=== PATIENT | female | born 1945 | race Caucasian/White ===

== ENCOUNTER 2020-12-21 20:57 | Emergency (ER) | payer MEDICARE, OTHER ==
[~2020-12-21] VITALS: Ht 154.9 cm; Wt 86.2 kg
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
[2020-12-21 21:53] LABS: BASOPHILS % (AUTO) 0.5 % (0.0-2.0); EOSINOPHILS % (AUTO) 1.5 % (0.0-6.0); HEMATOCRIT 34 % (33-45); HEMOGLOBIN 10.9 g/dL (11.5-14.8); LYMPHOCYTES # (AUTO) 1.5 K/uL (0.8-4.8); LYMPHOCYTES % (AUTO) 19.4 % (20.0-44.0); MEAN CORPUSCULAR HGB CONC 32 g/dl (31.0-36.0); MEAN CORPUSCULAR VOLUME 91 fL (82-100); MONOCYTES # (AUTO) 0.5 K/uL (0.1-1.30); MONOCYTES % (AUTO) 6.7 % (2.0-12.0); NEUTROPHILS # (AUTO) 5.5 K/uL (1.8-8.9); NEUTROPHILS % (AUTO) 71.9 % (43.0-81.0); PLATELET COUNT (AUTO) 242 K/uL (150-450); RED BLOOD CELL COUNT(AUTO) 3.74 MIL/uL (4.0-5.2); WHITE BLOOD COUNT (AUTO) 7.6 K/uL (4.3-11.0)
[2020-12-21 22:03] LABS: CALCIUM, SERUM 8.2 mg/dL (8.5-10.1); CARBON DIOXIDE 22 mmol/L (21-32); CHLORIDE 106 mmol/L (98-107); CREATININE 1.8 mg/dL (0.6-1.3); GLUCOSE 300 mg/dL (74-106); SODIUM SERUM 139 mmol/L (136-145); UREA NITROGEN, BLOOD 45 mg/dL (7-18)
--- NOTE | 2020-12-21 23:32 | NUR ---
Patient discharged to home in stable condition. Written and verbal after care instructions given. Patient verbalizes understanding of instruction. IV removed. Catheter intact and site benign. Pressure and 4x4 applied to site. No bleeding noted.
[2020-12-22 00:10] VITALS: BP 149/70
== END 2020-12-22 00:10 | disposition home or self-care (01) ==
LOC: ER 20:59
DX: S00.01XA Abrasion of scalp, initial encounter (principal); S09.8XXA Other specified injuries of head, initial encounter; E11.65 Type 2 diabetes mellitus with hyperglycemia; R51.9 Headache, unspecified; I10 Essential (primary) hypertension; E03.9 Hypothyroidism, unspecified; Z94.0 Kidney transplant status; W01.0XXA Fall on same level from slipping, tripping and stumbling without subsequent striking against object, initial encounter; Y93.89 Activity, other specified; Y92.89 Other specified places as the place of occurrence of the external cause; Y99.8 Other external cause status
CPT/HCPCS: 36415; 70450-TC; 72125-TC; 72170-TC; 80048-TC; 85025-TC; 85730-TC

== ENCOUNTER 2023-08-19 09:57 | Inpatient (IN) | payer MEDICARE, OTHER ==
[2023-08-19] VITALS (25 sets, daily range): BP systolic 75–161; BP diastolic 18–106; TEMP 90.1–90.8; O2SAT 91–100
[~2023-08-19] VITALS: Ht 157.5 cm; Wt 68.0 kg
[~2023-08-19 09:57] MED LIST: AMOX-427 PO
[2023-08-19] MEDS ORDERED: CHOL500062 PO (12:01)
[2023-08-19] MEDS ORDERED: LEVO88TA71 PO (12:01)
[2023-08-19] MEDS ORDERED: INSU100I43 SQ (12:01)
[2023-08-19] MEDS ORDERED: INSU100I26 SQ (12:01)
[2023-08-19] MEDS ORDERED: ONDA4TAB5 PO (12:01)
[2023-08-19] MEDS ORDERED: MIRT-119 PO (12:01)
[2023-08-19] MEDS ORDERED: PRED1TAB PO (12:01)
[2023-08-19] MEDS ORDERED: TACR1CAP2 PO ×2 (12:01)
[2023-08-19] MEDS ORDERED: ATOR40TA PO (12:01)
[2023-08-19] MEDS ORDERED: FOLI0.8T3 PO (12:01)
[2023-08-19] MEDS ORDERED: ACET325T53 PO (12:01)
[2023-08-19 12:05] LABS: CARBON DIOXIDE 15 mmol/L (21-32); CHLORIDE 98 mmol/L (98-107); CREATININE 4.6 mg/dL (0.6-1.3); GLUCOSE 321 mg/dL (74-106); POTASSIUM 5.5 mmol/L (3.5-5.1); SODIUM SERUM 132 mmol/L (136-145)
[2023-08-19 12:11] LABS: ALANINE AMINOTRANSFERASE 7 U/L (12-78); ALKALINE PHOSPHATASE 111 U/L (46-116); ASPARTATE AMINOTRANSFERASE 21 U/L (15-37); BILIRUBIN,DIRECT 0.2 mg/dL (0.0-0.2); BILIRUBIN,TOTAL 0.4 mg/dL (0.2-1.0); TOTAL PROTEIN, SERUM 4.8 g/dL (6.4-8.2)
[2023-08-19 12:14] LABS: UREA NITROGEN, BLOOD 83 mg/dL (7-18)
[2023-08-19 12:16] LABS: ALBUMIN 1.3 g/dL (3.4-5.0)
[2023-08-19 15:30] LABS: AMPHETAMINE, URINE NEGATIVE (NEGATIVE); BARBITURATE, URINE NEGATIVE (NEGATIVE); BENZODIAZEPINE, URINE NEGATIVE (NEGATIVE); CANNABINOID, URINE NEGATIVE (NEGATIVE); COCCAINE, URINE NEGATIVE (NEGATIVE); PHENCYCLIDINE SCREEN,URINE NEGATIVE (NEGATIVE)
[2023-08-19] MEDS ORDERED: ONDANSETRON HCL/PF 4 MG/2 ML VIAL IVP PRN (15:30)
[2023-08-19] MEDS ORDERED: DEXTROSE 50%-WATER 50 ML DISP.SYRIN IV PRN (15:30)
[2023-08-19] MEDS: SODIUM POLYSTYRENE SULFONATE 15 G/60 ML BOTTLE PO ONE (15:30)
[2023-08-19] MEDS ORDERED: Z GUARD REMEDY 4 OZ OINT TP PRN (15:30)
[2023-08-19] MEDS ORDERED: ACETAMINOPHEN 325 MG TABLET PO PRN (15:30)
[2023-08-19 15:31] LABS: OPIATE, URINE POSITIVE (NEGATIVE)
[2023-08-19] MEDS ORDERED: IOHEXOL-350 100 ML VIAL IV ONE (16:10)
[2023-08-19] MEDS ORDERED: CT SWABBABLE VALVE TRANS SET 1 EA INFUS.SET MC ONE (16:10)
[2023-08-19] MEDS ORDERED: IV NS 0.9% 250 ML IV ONE (16:10)
[2023-08-19 17:16] LABS: LACTIC ACID 7.9 mmol/L (0.4-2.0)
[2023-08-19] MEDS: IV NS 0.9% 250 ML IV ONE (17:41)
[2023-08-19 17:59] LABS: SITE, VBG Other; VBG BASE EXCESS -13.6 mmol/L (-3-3); VBG COHb 0.4 %; VBG MetHb 0.6 %; VBG O2Hb 50.4 %; VBG OXYGEN SATURATION 50.9 %; VBG PCO2 28.3 mmHg (40-52); VBG PH 7.257 (7.31-7.41); VBG PO2 33.7 mmHg (30-50); VENT MODE, VBG NASAL CANNULA
[2023-08-19] MEDS: TACROLIMUS ANHYDROUS 0.5 MG CAPSULE PO SCH (18:00)
[2023-08-19] MEDS: LEVETIRACETAM (500MG) 500 MG in IV NS 0.9% 100 ML IV SCH (18:15)
[2023-08-19] MEDS: BLOOD SUGAR DIAGNOSTIC 1 EACH STRIP IN SCH (18:27)
[2023-08-19 18:28] LABS: INR 2.19 (0.91-1.10); PROTHROMBIN TIME 22.1 SECS (9.2-11.1)
[2023-08-19 19:15] LABS: BASOPHILS # (AUTO) 0.1 K/uL (0.0-0.2); BASOPHILS % (AUTO) 0.5 % (0.0-2.0); EOSINOPHILS % (AUTO) 0.1 % (0.0-6.0); LYMPHOCYTES # (AUTO) 1.7 K/uL (0.8-4.8); LYMPHOCYTES % (AUTO) 13.3 % (20.0-44.0); MEAN CORPUSCULAR HEMOGLOBIN 32 PG (26.0-33.0); MEAN CORPUSCULAR HGB CONC 28 g/dl (31.0-36.0); MEAN CORPUSCULAR VOLUME 114 fL (82-100); MONOCYTES # (AUTO) 0.5 K/uL (0.1-1.30); MONOCYTES % (AUTO) 3.6 % (2.0-12.0); NEUTROPHILS # (AUTO) 10.7 K/uL (1.8-8.9); NEUTROPHILS % (AUTO) 82.5 % (43.0-81.0); PLATELET COUNT (AUTO) 238 K/uL (150-450); RED CELL DISTRIBUTION WIDTH 21.9 % (11.5-15.0); WHITE BLOOD COUNT (AUTO) 12.9 K/uL (4.3-11.0)
[2023-08-19] MEDS: CEFEPIME 1 GM in IV D5W 50 ML IV SCH (19:24)
[2023-08-19] MEDS: ALBUMIN 25% 12.5 GM/50 ML BOTTLE IV ONE (19:42)
[2023-08-19 19:53] LABS: RED BLOOD CELL COUNT(AUTO) 0.88 MIL/uL (4.0-5.2)
[2023-08-19 19:55] LABS: HEMATOCRIT 10 % (33-45); HEMOGLOBIN 2.8 g/dL (11.5-14.8)
[2023-08-19] MEDS ORDERED: PANTOPRAZOLE 80 MG in IV NS 0.9% 100 ML IV ONE (20:00)
[2023-08-19] MEDS: PANTOPRAZOLE 40 MG VIAL IV ONE (20:24)
[2023-08-19] MEDS: VANCOMYCIN 1 GM in IV D5W 250ml IV ONE (20:25)
[2023-08-19 21:00] LABS: ABG BASE EXCESS -11.7 mmol/L; ABG OXYGEN SATURATION 99.6 % (92.0-98.5); ABG PCO2 26.3 mmHg (35.0-45.0); ABG PH 7.321 (7.350-7.450); ABG PO2 583.7 mmHg (75.0-100.0); MetHb 0.4 % (0.0-1.5); O2Hb 98.2 % (94.0-97.0); SITE, ABG Right Brachial; VENT MODE, BG AC 18 400 100 +5
[2023-08-19] MEDS ORDERED: PANTOPRAZOLE 40 MG VIAL IV SCH (21:00)
[2023-08-19] MEDS ORDERED: Sodium Bicarbonate 150 MEQ in IV D5W 1,000 ML IV PRN (21:30)
[2023-08-19] MEDS: SODIUM BICARBONATE SYR 50 MEQ/50 ML DISP.SYRIN IV ONE ×2 (21:44→22:49)
[2023-08-19] MEDS: ATORVASTATIN 40 MG TABLET PO SCH (21:44)
[2023-08-19 22:30] LABS: IRON, SERUM 75 ug/dl (50-175); TOTAL IRON BINDING CAPACITY 71 ug/dl (250-450)
[2023-08-19 22:33] LABS: FERRITIN 2742 ng/mL (8-388)
[2023-08-19] MEDS: INSULIN REGULAR, HUMAN 100 UNIT/ML 3 ML VIAL SQ PRN (23:34)
[2023-08-20] VITALS (73 sets, daily range): BP systolic 79–144; BP diastolic 23–111; TEMP 84.9–99.5; O2SAT 96–100
[2023-08-20] MEDS: PROPOFOL 100 ML IV PRN (00:17)
[2023-08-20] MEDS ORDERED: SODIUM BICARBONATE 5 ML VIAL ONE (00:54)
[2023-08-20 00:55] LABS: BASOPHILS # (AUTO) 0.1 K/uL (0.0-0.2); BASOPHILS % (AUTO) 0.7 % (0.0-2.0); HEMATOCRIT 30 % (33-45); HEMOGLOBIN 9.8 g/dL (11.5-14.8); LYMPHOCYTES # (AUTO) 0.6 K/uL (0.8-4.8); LYMPHOCYTES % (AUTO) 3.5 % (20.0-44.0); MEAN CORPUSCULAR HEMOGLOBIN 30 PG (26.0-33.0); MEAN CORPUSCULAR HGB CONC 33 g/dl (31.0-36.0); MEAN CORPUSCULAR VOLUME 92 fL (82-100); MONOCYTES # (AUTO) 0.5 K/uL (0.1-1.30); MONOCYTES % (AUTO) 2.7 % (2.0-12.0); NEUTROPHILS # (AUTO) 17.1 K/uL (1.8-8.9); NEUTROPHILS % (AUTO) 93.1 % (43.0-81.0); PLATELET COUNT (AUTO) 231 K/uL (150-450); RED BLOOD CELL COUNT(AUTO) 3.28 MIL/uL (4.0-5.2); RED CELL DISTRIBUTION WIDTH 15.2 % (11.5-15.0); WHITE BLOOD COUNT (AUTO) 18.4 K/uL (4.3-11.0)
[2023-08-20] MEDS: SODIUM BICARBONATE SYR 50 MEQ/50 ML DISP.SYRIN ONE (01:05)
[2023-08-20 01:23] LABS: ALANINE AMINOTRANSFERASE 11 U/L (12-78); ALBUMIN 1.6 g/dL (3.4-5.0); ALKALINE PHOSPHATASE 106 U/L (46-116); ASPARTATE AMINOTRANSFERASE 27 U/L (15-37); BILIRUBIN,TOTAL 0.7 mg/dL (0.2-1.0); CARBON DIOXIDE 19 mmol/L (21-32); CHLORIDE 100 mmol/L (98-107); CREATININE 4.7 mg/dL (0.6-1.3); MAGNESIUM 1.9 mg/dL (1.8-2.4); PHOSPHORUS 6.3 mg/dL (2.5-4.9); POTASSIUM 5.1 mmol/L (3.5-5.1); SODIUM SERUM 135 mmol/L (136-145); TOTAL PROTEIN, SERUM 4.9 g/dL (6.4-8.2)
[2023-08-20 01:35] LABS: GLUCOSE 415 mg/dL (74-106); UREA NITROGEN, BLOOD 88 mg/dL (7-18)
[2023-08-20 02:02] LABS: ANISOCYTOSIS 1+; BAND % (MANUAL) 3 % (0.0-5.0); BASOPHILS % (MANUAL) 0 % (0.0-2.0); EOSINOPHILS % (MANUAL) 0 % (0-4); HYPOCHROMASIA 1+; LYMPHOCYTES % (MANUAL) 15 % (16-48); MONOCYTES % (MANUAL) 6 % (0-11.0); NEUTROPHILS % (MANUAL) 76 (42-76); OVALOCYTES 1+; PLATELET ESTIMATE ADEQUATE
[2023-08-20] MEDS: Sodium Bicarbonate 150 MEQ in IV D5W 1,000 ML IV SCH (02:15)
[2023-08-20 04:43] LABS: BASOPHILS % (AUTO) 0.2 % (0.0-2.0); EOSINOPHILS % (AUTO) 0.1 % (0.0-6.0); HEMATOCRIT 27 % (33-45); HEMOGLOBIN 9.2 g/dL (11.5-14.8); LYMPHOCYTES % (AUTO) 4.3 % (20.0-44.0); MEAN CORPUSCULAR HEMOGLOBIN 31 PG (26.0-33.0); MEAN CORPUSCULAR HGB CONC 34 g/dl (31.0-36.0); MEAN CORPUSCULAR VOLUME 91 fL (82-100); MONOCYTES % (AUTO) 4.5 % (2.0-12.0); NEUTROPHILS % (AUTO) 90.9 % (43.0-81.0); PLATELET COUNT (AUTO) 225 K/uL (150-450); RED BLOOD CELL COUNT(AUTO) 3.02 MIL/uL (4.0-5.2); RED CELL DISTRIBUTION WIDTH 14.9 % (11.5-15.0); WHITE BLOOD COUNT (AUTO) 18.2 K/uL (4.3-11.0)
[2023-08-20 04:44] LABS: LYMPHOCYTES # (AUTO) 0.8 K/uL (0.8-4.8); MONOCYTES # (AUTO) 0.8 K/uL (0.1-1.30); NEUTROPHILS # (AUTO) 16.6 K/uL (1.8-8.9)
[2023-08-20 05:38] LABS: ALANINE AMINOTRANSFERASE 7 U/L (12-78); ALKALINE PHOSPHATASE 95 U/L (46-116); ASPARTATE AMINOTRANSFERASE 28 U/L (15-37); BILIRUBIN,TOTAL 0.6 mg/dL (0.2-1.0); CALCIUM, SERUM 7.4 mg/dL (8.5-10.1); CARBON DIOXIDE 20 mmol/L (21-32); CHLORIDE 95 mmol/L (98-107); CREATININE 4.4 mg/dL (0.6-1.3); GLUCOSE 320 mg/dL (74-106); MAGNESIUM 1.7 mg/dL (1.8-2.4); PHOSPHORUS 5.5 mg/dL (2.5-4.9); POTASSIUM 4.8 mmol/L (3.5-5.1); SODIUM SERUM 130 mmol/L (136-145); TOTAL PROTEIN, SERUM 4.4 g/dL (6.4-8.2)
[2023-08-20 05:39] LABS: ALBUMIN 1.4 g/dL (3.4-5.0); UREA NITROGEN, BLOOD 86 mg/dL (7-18)
[2023-08-20 05:49] LABS: CHOLESTEROL 63 mg/dL (<200); CREATINE KINASE, TOTAL 192 U/L (26-192); HDL CHOLESTEROL 18 mg/dL (40-60); LDL 16 mg/dL (0-99); THYROID STIMULATING HORMONE 11.744 uIU/mL (0.358-3.74); TRIGLYCERIDES 1342 mg/dL (30-150)
[2023-08-20] MEDS: BLOOD SUGAR DIAGNOSTIC 1 EACH STRIP IN SCH (05:55)
[2023-08-20] MEDS: INSULIN REGULAR, HUMAN 100 UNIT/ML 3 ML VIAL SQ PRN (06:02)
[2023-08-20] MEDS ORDERED: PANTOPRAZOLE 40 MG TABLET.DR PO SCH (07:30)
[2023-08-20] MEDS: LEVOTHYROXINE SODIUM 88 MCG TABLET PO SCH (07:30)
[2023-08-20] MEDS: TACROLIMUS ANHYDROUS 0.5 MG CAPSULE PO SCH (09:00)
[2023-08-20] MEDS: CHOLECALCIFEROL 1,000 UNIT TABLET (VIT D3) PO SCH (09:00)
[2023-08-20] MEDS: predniSONE 1 MG TABLET PO SCH (09:00)
[2023-08-20] MEDS ORDERED: SODIUM BICARBONATE SYR 50 MEQ/50 ML DISP.SYRIN IV ONE (09:02)
[2023-08-20] MEDS: PANTOPRAZOLE 40 MG VIAL IV SCH (09:47)
[2023-08-20] MEDS: FOLIC ACID 1 MG TABLET PO SCH (09:58)
[2023-08-20 10:44] LABS: ABG BASE EXCESS 6.4 mmol/L; ABG OXYGEN SATURATION 96.4 % (92.0-98.5); ABG PH 7.512 (7.350-7.450); ABG PO2 82.8 mmHg (75.0-100.0); ABG TOTAL HEMOGLOBIN 10.7 G/dL (12.0-16.0); AaDO2 158.7 mmHg; COHb 0.6 % (0.5-1.5); MetHb 0.2 % (0.0-1.5); O2Hb 95.6 % (94.0-97.0); PEEP,BG 0 cm H2O; SITE, ABG Right Radial; VENT MODE, BG AC @ 40%; VT, ABG 400 mL
[2023-08-20] MEDS: Magnesium 1GM/D5W 100ML PREMIX 100 ML IV SCH (11:25)
[2023-08-20] MEDS: MIDAZOLAM HCL 100 MG in IV NS 0.9% 80 ML IV PRN (14:08)
[2023-08-20] MEDS ORDERED: IV NS 0.9% 250 ML IV ONE (14:33)
[2023-08-20] MEDS ORDERED: IOHEXOL-350 100 ML VIAL IV ONE (14:33)
[2023-08-20] MEDS ORDERED: CT SWABBABLE VALVE TRANS SET 1 EA INFUS.SET MC ONE (14:33)
[2023-08-20] MEDS: VANCOMYCIN POST DIALYSIS 500MG IV PRN (15:18)
[2023-08-20] MEDS: IV NS 0.9% 250 ML IV PRN (15:20)
[2023-08-20] MEDS: NOREPINEPHRINE 8 MG in IV D5W 242 ML IV PRN (18:00)
[2023-08-20] MEDS ORDERED: ANESTHESIA TRAY IN PYXIS 1 EA TRAY MC ONE (18:16)
[2023-08-20] MEDS ORDERED: Sodium Bicarbonate 150 MEQ in IV D5W 1,000 ML IV SCH (23:00)
[2023-08-21] VITALS (81 sets, daily range): BP systolic 79–154; BP diastolic 27–103; TEMP 98.2–99.5; O2SAT 100
[2023-08-21 04:50] LABS: CALCIUM, SERUM 7.9 mg/dL (8.5-10.1); CARBON DIOXIDE 29 mmol/L (21-32); CHLORIDE 104 mmol/L (98-107); CREATININE 3.2 mg/dL (0.6-1.3); GLUCOSE 74 mg/dL (74-106); POTASSIUM 3.2 mmol/L (3.5-5.1); SODIUM SERUM 141 mmol/L (136-145); UREA NITROGEN, BLOOD 52 mg/dL (7-18)
[2023-08-21 07:18] LABS: BASOPHILS # (AUTO) 0.1 K/uL (0.0-0.2); BASOPHILS % (AUTO) 0.3 % (0.0-2.0); EOSINOPHILS # (AUTO) 0.2 K/uL (0.0-0.7); EOSINOPHILS % (AUTO) 0.7 % (0.0-6.0); HEMATOCRIT 27 % (33-45); LYMPHOCYTES # (AUTO) 1.5 K/uL (0.8-4.8); LYMPHOCYTES % (AUTO) 4.8 % (20.0-44.0); MEAN CORPUSCULAR HEMOGLOBIN 30 PG (26.0-33.0); MEAN CORPUSCULAR HGB CONC 33 g/dl (31.0-36.0); MEAN CORPUSCULAR VOLUME 90 fL (82-100); MONOCYTES # (AUTO) 0.9 K/uL (0.1-1.30); NEUTROPHILS # (AUTO) 28.3 K/uL (1.8-8.9); NEUTROPHILS % (AUTO) 91.2 % (43.0-81.0); PLATELET COUNT (AUTO) 213 K/uL (150-450); RED BLOOD CELL COUNT(AUTO) 3.02 MIL/uL (4.0-5.2); RED CELL DISTRIBUTION WIDTH 15.3 % (11.5-15.0)
[2023-08-21] MEDS: POTASSIUM CL. PREMIX PERIPHER. 50 ML IV SCH (08:20)
[2023-08-21 09:26] LABS: ABG BASE EXCESS 1.3 mmol/L; ABG OXYGEN SATURATION 95.1 % (92.0-98.5); ABG PCO2 36.9 mmHg (35.0-45.0); ABG PH 7.451 (7.350-7.450); ABG PO2 73.8 mmHg (75.0-100.0); ABG TOTAL HEMOGLOBIN 12.1 G/dL (12.0-16.0); COHb 0.9 % (0.5-1.5); MetHb 0.2 % (0.0-1.5); O2Hb 94.1 % (94.0-97.0); SITE, ABG Right Radial
[2023-08-21 10:07] LABS: *SPE A/G RATIO 0.9 (0.7-1.7); *SPE ALBUMIN 2.1 g/dL (2.9-4.4); *SPE ALPHA-1-GLOBULIN 0.4 g/dL (0.0-0.4); *SPE ALPHA-2-GLOBULIN 0.5 g/dL (0.4-1.0); *SPE BETA GLOBULIN 0.6 g/dL (0.7-1.3); *SPE GLOBULIN, TOTAL 2.3 g/dL (2.2-3.9); *SPE M-SPIKE Not Observed g/dL (Not Observed); *SPE PROTEIN TOTAL 4.4 g/dL (6.0-8.5); *SPEGAMMA GLOBULIN 0.7 g/dL (0.4-1.8)
[2023-08-21 11:09] LABS: HEPATITIS B SURFACE AB Reactive (.)
[2023-08-21 11:36] LABS: BAND % (MANUAL) 5 % (0.0-5.0); LYMPHOCYTES % (MANUAL) 9 % (16-48); NEUTROPHILS % (MANUAL) 80 (42-76)
[2023-08-21 11:37] LABS: ANISOCYTOSIS 1+; BASOPHILS % (MANUAL) 0 % (0.0-2.0); EOSINOPHILS % (MANUAL) 0 % (0-4); MONOCYTES % (MANUAL) 6 % (0-11.0); OVALOCYTES 1+; PLATELET ESTIMATE ADEQUATE
[2023-08-21] MEDS ORDERED: PHARMACY TO CHANGE PO MEDS TO GT/NG XX PRN (16:30)
[2023-08-21] MEDS: TACROLIMUS ANHYDROUS 0.5 MG CAPSULE GT SCH (18:02)
[2023-08-21] MEDS: ATORVASTATIN 40 MG TABLET GT SCH (21:07)
[2023-08-21] MEDS: MEROPENEM 500 MG in IV NS 0.9% 50 ML IV SCH (21:07)
[2023-08-22] VITALS (99 sets, daily range): BP systolic 66–148; BP diastolic 18–119; TEMP 98.8–100.2; O2SAT 100
[2023-08-22 06:44] LABS: BASOPHILS # (AUTO) 0.1 K/uL (0.0-0.2); EOSINOPHILS # (AUTO) 0.1 K/uL (0.0-0.7)
[2023-08-22 06:52] LABS: BASOPHILS % (AUTO) 0.3 % (0.0-2.0); EOSINOPHILS % (AUTO) 0.2 % (0.0-6.0); HEMATOCRIT 32 % (33-45); HEMOGLOBIN 10.6 g/dL (11.5-14.8); LYMPHOCYTES # (AUTO) 1.5 K/uL (0.8-4.8); LYMPHOCYTES % (AUTO) 4.5 % (20.0-44.0); MEAN CORPUSCULAR HEMOGLOBIN 30 PG (26.0-33.0); MEAN CORPUSCULAR HGB CONC 34 g/dl (31.0-36.0); MEAN CORPUSCULAR VOLUME 90 fL (82-100); MONOCYTES # (AUTO) 1.2 K/uL (0.1-1.30); MONOCYTES % (AUTO) 3.6 % (2.0-12.0); NEUTROPHILS # (AUTO) 29.9 K/uL (1.8-8.9); NEUTROPHILS % (AUTO) 91.4 % (43.0-81.0); PLATELET COUNT (AUTO) 222 K/uL (150-450); RED BLOOD CELL COUNT(AUTO) 3.51 MIL/uL (4.0-5.2); RED CELL DISTRIBUTION WIDTH 15.6 % (11.5-15.0)
[2023-08-22 06:53] LABS: CALCIUM, SERUM 7.5 mg/dL (8.5-10.1); CARBON DIOXIDE 22 mmol/L (21-32); CHLORIDE 93 mmol/L (98-107); CREATININE 2.6 mg/dL (0.6-1.3); GLUCOSE 174 mg/dL (74-106); POTASSIUM 3.4 mmol/L (3.5-5.1); SODIUM SERUM 129 mmol/L (136-145); UREA NITROGEN, BLOOD 34 mg/dL (7-18)
[2023-08-22 07:03] LABS: WHITE BLOOD COUNT (AUTO) 32.8 K/uL (4.3-11.0)
[2023-08-22] MEDS: CHOLECALCIFEROL 1,000 UNIT TABLET (VIT D3) GT SCH (08:05)
[2023-08-22] MEDS: predniSONE 1 MG TABLET GT SCH (08:05)
[2023-08-22] MEDS: TACROLIMUS ANHYDROUS 0.5 MG CAPSULE GT SCH (08:05)
[2023-08-22] MEDS: FOLIC ACID 1 MG TABLET GT SCH (08:05)
[2023-08-22] MEDS: LEVOTHYROXINE SODIUM 88 MCG TABLET GT SCH (08:07)
[2023-08-22 12:55] LABS: ANISOCYTOSIS 1+; BAND % (MANUAL) 3 % (0.0-5.0); BASOPHILS % (MANUAL) 0 % (0.0-2.0); EOSINOPHILS % (MANUAL) 0 % (0-4); LYMPHOCYTES % (MANUAL) 8 % (16-48); MONOCYTES % (MANUAL) 4 % (0-11.0); NEUTROPHILS % (MANUAL) 85 (42-76); OVALOCYTES 1+; PLATELET ESTIMATE ADEQUATE
[2023-08-22] MEDS: ACETAMINOPHEN 650 MG/20.3 ML UDC GT PRN (13:02)
[2023-08-23] VITALS (56 sets, daily range): BP systolic 46–137; BP diastolic 24–111; TEMP 97–99; O2SAT 95–100
[2023-08-23 03:23] LABS: BASOPHILS # (AUTO) 0.1 K/uL (0.0-0.2); BASOPHILS % (AUTO) 0.2 % (0.0-2.0); EOSINOPHILS # (AUTO) 0.2 K/uL (0.0-0.7); EOSINOPHILS % (AUTO) 0.9 % (0.0-6.0); HEMATOCRIT 33 % (33-45); LYMPHOCYTES # (AUTO) 1.7 K/uL (0.8-4.8); LYMPHOCYTES % (AUTO) 5.9 % (20.0-44.0); MEAN CORPUSCULAR HEMOGLOBIN 30 PG (26.0-33.0); MEAN CORPUSCULAR HGB CONC 34 g/dl (31.0-36.0); MEAN CORPUSCULAR VOLUME 90 fL (82-100); MONOCYTES # (AUTO) 1.1 K/uL (0.1-1.30); MONOCYTES % (AUTO) 3.9 % (2.0-12.0); NEUTROPHILS # (AUTO) 25.1 K/uL (1.8-8.9); NEUTROPHILS % (AUTO) 89.1 % (43.0-81.0); PLATELET COUNT (AUTO) 207 K/uL (150-450); RED BLOOD CELL COUNT(AUTO) 3.66 MIL/uL (4.0-5.2); RED CELL DISTRIBUTION WIDTH 16.3 % (11.5-15.0); WHITE BLOOD COUNT (AUTO) 28.2 K/uL (4.3-11.0)
[2023-08-23 03:36] LABS: CALCIUM, SERUM 7.8 mg/dL (8.5-10.1); CARBON DIOXIDE 25 mmol/L (21-32); CHLORIDE 92 mmol/L (98-107); CREATININE 3.1 mg/dL (0.6-1.3); GLUCOSE 122 mg/dL (74-106); POTASSIUM 3.2 mmol/L (3.5-5.1); SODIUM SERUM 127 mmol/L (136-145); UREA NITROGEN, BLOOD 38 mg/dL (7-18)
[2023-08-23] MEDS: GLUCERNA 1.2 1,000 ML BOTTLE NG PRN (11:08)
[2023-08-23] MEDS: ALBUMIN 25% 25 GM in PREMIX 1 EA IV PRN (13:44)
[2023-08-23] MEDS ORDERED: FLUCONAZOLE IN NS 100 MG in PREMIX 1 EA IV SCH (19:00)
[2023-08-23] MEDS: MICAFUNGIN SODIUM 100 MG in IV NS 0.9% 100 ML IV SCH (21:40)
[2023-08-23] MEDS: NOREPINEPHRINE 32 MG in IV NS 0.9% 250 ML IV PRN (22:03)
[2023-08-24] VITALS (100 sets, daily range): BP systolic 85–163; BP diastolic 22–117; TEMP 97.4–99.3; O2SAT 90–100
[2023-08-24 04:48] LABS: BASOPHILS # (AUTO) 0.1 K/uL (0.0-0.2); BASOPHILS % (AUTO) 0.5 % (0.0-2.0); EOSINOPHILS # (AUTO) 0.1 K/uL (0.0-0.7); EOSINOPHILS % (AUTO) 0.6 % (0.0-6.0); HEMATOCRIT 32 % (33-45); HEMOGLOBIN 10.4 g/dL (11.5-14.8); LYMPHOCYTES # (AUTO) 1.4 K/uL (0.8-4.8); LYMPHOCYTES % (AUTO) 7.2 % (20.0-44.0); MEAN CORPUSCULAR HEMOGLOBIN 30 PG (26.0-33.0); MEAN CORPUSCULAR HGB CONC 33 g/dl (31.0-36.0); MEAN CORPUSCULAR VOLUME 91 fL (82-100); MONOCYTES # (AUTO) 1.4 K/uL (0.1-1.30); MONOCYTES % (AUTO) 7.3 % (2.0-12.0); NEUTROPHILS # (AUTO) 15.9 K/uL (1.8-8.9); NEUTROPHILS % (AUTO) 84.4 % (43.0-81.0); PLATELET COUNT (AUTO) 168 K/uL (150-450); RED BLOOD CELL COUNT(AUTO) 3.46 MIL/uL (4.0-5.2); RED CELL DISTRIBUTION WIDTH 16.8 % (11.5-15.0); WHITE BLOOD COUNT (AUTO) 18.9 K/uL (4.3-11.0)
[2023-08-24 05:07] LABS: CALCIUM, SERUM 8.3 mg/dL (8.5-10.1); CARBON DIOXIDE 25 mmol/L (21-32); CHLORIDE 96 mmol/L (98-107); CREATININE 2.7 mg/dL (0.6-1.3); GLUCOSE 256 mg/dL (74-106); POTASSIUM 3.5 mmol/L (3.5-5.1); SODIUM SERUM 132 mmol/L (136-145); UREA NITROGEN, BLOOD 24 mg/dL (7-18)
[2023-08-24] MEDS: DEXTROSE 50%-WATER 50 ML DISP.SYRIN IV PRN (18:15)
[2023-08-24] MEDS: PANTOPRAZOLE 40 MG/PACK PACK GT SCH (21:23)
[2023-08-25] VITALS (94 sets, daily range): BP systolic 59–150; BP diastolic 17–113; TEMP 97.5–99.2; O2SAT 87–100
[2023-08-25 04:58] LABS: BASOPHILS # (AUTO) 0.1 K/uL (0.0-0.2); BASOPHILS % (AUTO) 0.5 % (0.0-2.0); EOSINOPHILS # (AUTO) 0.2 K/uL (0.0-0.7); EOSINOPHILS % (AUTO) 1.5 % (0.0-6.0); HEMATOCRIT 27 % (33-45); HEMOGLOBIN 9.3 g/dL (11.5-14.8); LYMPHOCYTES # (AUTO) 1.1 K/uL (0.8-4.8); LYMPHOCYTES % (AUTO) 11.2 % (20.0-44.0); MEAN CORPUSCULAR HEMOGLOBIN 31 PG (26.0-33.0); MEAN CORPUSCULAR HGB CONC 34 g/dl (31.0-36.0); MEAN CORPUSCULAR VOLUME 92 fL (82-100); MONOCYTES % (AUTO) 10.1 % (2.0-12.0); NEUTROPHILS # (AUTO) 7.8 K/uL (1.8-8.9); NEUTROPHILS % (AUTO) 76.7 % (43.0-81.0); PLATELET COUNT (AUTO) 127 K/uL (150-450); RED BLOOD CELL COUNT(AUTO) 2.99 MIL/uL (4.0-5.2); RED CELL DISTRIBUTION WIDTH 16.5 % (11.5-15.0); WHITE BLOOD COUNT (AUTO) 10.1 K/uL (4.3-11.0)
[2023-08-25 05:27] LABS: CALCIUM, SERUM 8.4 mg/dL (8.5-10.1); CARBON DIOXIDE 24 mmol/L (21-32); CHLORIDE 99 mmol/L (98-107); CREATININE 3.3 mg/dL (0.6-1.3); GLUCOSE 207 mg/dL (74-106); POTASSIUM 3.8 mmol/L (3.5-5.1); SODIUM SERUM 132 mmol/L (136-145); UREA NITROGEN, BLOOD 28 mg/dL (7-18)
[2023-08-25] MEDS: PRECEDEX 400 MCG/100 ML BOTTLE 100 ML IV PRN (11:06)
[2023-08-25] MEDS: NOREPINEPHRINE 8 MG in IV D5W 250ML IV PRN (11:20)
[2023-08-26] VITALS (63 sets, daily range): BP systolic 57–167; BP diastolic 23–147; TEMP 97.2–98.2; O2SAT 93–100
[2023-08-26 04:57] LABS: CALCIUM, SERUM 8.5 mg/dL (8.5-10.1); CARBON DIOXIDE 28 mmol/L (21-32); CHLORIDE 97 mmol/L (98-107); CREATININE 2.6 mg/dL (0.6-1.3); GLUCOSE 201 mg/dL (74-106); POTASSIUM 3.9 mmol/L (3.5-5.1); SODIUM SERUM 133 mmol/L (136-145); UREA NITROGEN, BLOOD 20 mg/dL (7-18)
[2023-08-26] MEDS: VIT B CMPLX 3/FA/VIT C/BIOTIN 1 TAB TABLET GT SCH (09:14)
[2023-08-26] MEDS: LEVETIRACETAM SOL (5 ML) 100 MG/ML UDC GT SCH (16:47)
[2023-08-27] VITALS (129 sets, daily range): BP systolic 45–131; BP diastolic 16–91; TEMP 97.6–98.6; O2SAT 74–100
[2023-08-27 04:44] LABS: BASOPHILS # (AUTO) 0.1 K/uL (0.0-0.2); BASOPHILS % (AUTO) 0.7 % (0.0-2.0); EOSINOPHILS # (AUTO) 0.2 K/uL (0.0-0.7); EOSINOPHILS % (AUTO) 2.2 % (0.0-6.0); HEMATOCRIT 29 % (33-45); HEMOGLOBIN 9.6 g/dL (11.5-14.8); LYMPHOCYTES # (AUTO) 1.2 K/uL (0.8-4.8); MEAN CORPUSCULAR HEMOGLOBIN 31 PG (26.0-33.0); MEAN CORPUSCULAR HGB CONC 33 g/dl (31.0-36.0); MEAN CORPUSCULAR VOLUME 94 fL (82-100); MONOCYTES # (AUTO) 1.1 K/uL (0.1-1.30); NEUTROPHILS # (AUTO) 8.2 K/uL (1.8-8.9); NEUTROPHILS % (AUTO) 76.1 % (43.0-81.0); PLATELET COUNT (AUTO) 203 K/uL (150-450); RED BLOOD CELL COUNT(AUTO) 3.13 MIL/uL (4.0-5.2); RED CELL DISTRIBUTION WIDTH 17.3 % (11.5-15.0); WHITE BLOOD COUNT (AUTO) 10.8 K/uL (4.3-11.0)
[2023-08-27 04:50] LABS: CALCIUM, SERUM 8.8 mg/dL (8.5-10.1); CARBON DIOXIDE 29 mmol/L (21-32); CHLORIDE 97 mmol/L (98-107); CREATININE 3.2 mg/dL (0.6-1.3); GLUCOSE 210 mg/dL (74-106); POTASSIUM 4.3 mmol/L (3.5-5.1); SODIUM SERUM 132 mmol/L (136-145); UREA NITROGEN, BLOOD 26 mg/dL (7-18)
[2023-08-28] VITALS (117 sets, daily range): BP systolic 55–187; BP diastolic 13–97; TEMP 98.1–100.4; O2SAT 92–100
[2023-08-28 04:39] LABS: CALCIUM, SERUM 8.6 mg/dL (8.5-10.1); CARBON DIOXIDE 28 mmol/L (21-32); CHLORIDE 100 mmol/L (98-107); CREATININE 2.7 mg/dL (0.6-1.3); GLUCOSE 197 mg/dL (74-106); POTASSIUM 3.8 mmol/L (3.5-5.1); SODIUM SERUM 135 mmol/L (136-145); UREA NITROGEN, BLOOD 21 mg/dL (7-18)
[2023-08-28 04:53] LABS: BASOPHILS # (AUTO) 0.1 K/uL (0.0-0.2); BASOPHILS % (AUTO) 1.1 % (0.0-2.0); EOSINOPHILS # (AUTO) 0.3 K/uL (0.0-0.7); EOSINOPHILS % (AUTO) 3.1 % (0.0-6.0); HEMATOCRIT 32 % (33-45); HEMOGLOBIN 10.5 g/dL (11.5-14.8); LYMPHOCYTES # (AUTO) 1.3 K/uL (0.8-4.8); LYMPHOCYTES % (AUTO) 12.3 % (20.0-44.0); MEAN CORPUSCULAR HEMOGLOBIN 31 PG (26.0-33.0); MEAN CORPUSCULAR HGB CONC 33 g/dl (31.0-36.0); MEAN CORPUSCULAR VOLUME 94 fL (82-100); MONOCYTES # (AUTO) 1.2 K/uL (0.1-1.30); MONOCYTES % (AUTO) 10.7 % (2.0-12.0); NEUTROPHILS # (AUTO) 7.9 K/uL (1.8-8.9); NEUTROPHILS % (AUTO) 72.8 % (43.0-81.0); PLATELET COUNT (AUTO) 249 K/uL (150-450); RED CELL DISTRIBUTION WIDTH 16.9 % (11.5-15.0); WHITE BLOOD COUNT (AUTO) 10.9 K/uL (4.3-11.0)
[2023-08-29] VITALS (57 sets, daily range): BP systolic 54–159; BP diastolic 15–130; TEMP 95.2–100.4; O2SAT 62–100
[2023-08-29 06:54] LABS: BASOPHILS # (AUTO) 0.1 K/uL (0.0-0.2); BASOPHILS % (AUTO) 1.3 % (0.0-2.0); EOSINOPHILS # (AUTO) 0.4 K/uL (0.0-0.7); EOSINOPHILS % (AUTO) 4.1 % (0.0-6.0); HEMATOCRIT 31 % (33-45); LYMPHOCYTES # (AUTO) 1.1 K/uL (0.8-4.8); LYMPHOCYTES % (AUTO) 10.6 % (20.0-44.0); MEAN CORPUSCULAR HEMOGLOBIN 30 PG (26.0-33.0); MEAN CORPUSCULAR HGB CONC 33 g/dl (31.0-36.0); MEAN CORPUSCULAR VOLUME 93 fL (82-100); MONOCYTES # (AUTO) 0.7 K/uL (0.1-1.30); MONOCYTES % (AUTO) 6.7 % (2.0-12.0); NEUTROPHILS # (AUTO) 7.7 K/uL (1.8-8.9); NEUTROPHILS % (AUTO) 77.3 % (43.0-81.0); PLATELET COUNT (AUTO) 229 K/uL (150-450); RED CELL DISTRIBUTION WIDTH 17.4 % (11.5-15.0)
[2023-08-29 07:43] LABS: CALCIUM, SERUM 8.2 mg/dL (8.5-10.1); CARBON DIOXIDE 28 mmol/L (21-32); CHLORIDE 99 mmol/L (98-107); CREATININE 3.4 mg/dL (0.6-1.3); GLUCOSE 205 mg/dL (74-106); PHOSPHORUS 4.7 mg/dL (2.5-4.9); SODIUM SERUM 135 mmol/L (136-145); UREA NITROGEN, BLOOD 27 mg/dL (7-18); VANCOMYCIN,TROUGH 21 ug/ml (10-20)
[2023-08-29] MEDS ORDERED: MORPHINE SULFATE PF DRIP 250 MG in IV D5W 240 ML IV PRN (08:30)
[2023-08-29] MEDS ORDERED: DC PROPOFOL WHEN EXTUBATED XX SCH (10:30)
[2023-08-30 07:55] LABS: PTH, INTACT 153 pg/mL
== END 2023-08-29 11:38 | DRG 64 ==
LOC: ER 10:02 → TELE 13:57 → ICU 15:35
PROVIDERS: ADMIT Nurse Practitioner Family; ATTEND Internal Medicine
PROC: 5A1955Z Respiratory Ventilation, Greater than 96 Consecutive Hours (ICD-10-PCS; principal; 2023-08-19)
PROC: 0BH18EZ Insertion of Endotracheal Airway into Trachea, Via Natural or Artificial Opening Endoscopic (ICD-10-PCS; 2023-08-19)
PROC: 30233N1 Transfusion of Nonautologous Red Blood Cells into Peripheral Vein, Percutaneous Approach (ICD-10-PCS; 2023-08-19)
PROC: 05H533Z Insertion of Infusion Device into Right Subclavian Vein, Percutaneous Approach (ICD-10-PCS; 2023-08-19)
PROC: B546ZZA Ultrasonography of Right Subclavian Vein, Guidance (ICD-10-PCS; 2023-08-19)
PROC: 5A12012 Performance of Cardiac Output, Single, Manual (ICD-10-PCS; 2023-08-19)
PROC: 0DB68ZX Excision of Stomach, Via Natural or Artificial Opening Endoscopic, Diagnostic (ICD-10-PCS; 2023-08-20)
PROC: 02HV33Z Insertion of Infusion Device into Superior Vena Cava, Percutaneous Approach (ICD-10-PCS; 2023-08-20)
PROC: B548ZZA Ultrasonography of Superior Vena Cava, Guidance (ICD-10-PCS; 2023-08-20)
PROC: 30233K1 Transfusion of Nonautologous Frozen Plasma into Peripheral Vein, Percutaneous Approach (ICD-10-PCS; 2023-08-20)
DX: I62.00 Nontraumatic subdural hemorrhage, unspecified (principal); J96.00 Acute respiratory failure, unspecified whether with hypoxia or hypercapnia; K25.4 Chronic or unspecified gastric ulcer with hemorrhage; N18.6 End stage renal disease; K29.51 Unspecified chronic gastritis with bleeding; E87.1 Hypo-osmolality and hyponatremia; G93.1 Anoxic brain damage, not elsewhere classified; T86.12 Kidney transplant failure; I13.2 Hypertensive heart and chronic kidney disease with heart failure and with stage 5 chronic kidney disease, or end stage renal disease; E11.52 Type 2 diabetes mellitus with diabetic peripheral angiopathy with gangrene; L03.115 Cellulitis of right lower limb; I96 Gangrene, not elsewhere classified; B37.81 Candidal esophagitis; R57.9 Shock, unspecified; I60.9 Nontraumatic subarachnoid hemorrhage, unspecified; Z51.5 Encounter for palliative care; I46.9 Cardiac arrest, cause unspecified; Y83.8 Other surgical procedures as the cause of abnormal reaction of the patient, or of later complication, without mention of misadventure at the time of the procedure; Y92.009 Unspecified place in unspecified non-institutional (private) residence as the place of occurrence of the external cause; Z79.60 Long term (current) use of unspecified immunomodulators and immunosuppressants; E03.9 Hypothyroidism, unspecified; E11.22 Type 2 diabetes mellitus with diabetic chronic kidney disease; E78.1 Pure hyperglyceridemia; E87.5 Hyperkalemia; R29.810 Facial weakness; M19.90 Unspecified osteoarthritis, unspecified site; Z79.4 Long term (current) use of insulin; Z86.73 Personal history of transient ischemic attack (TIA), and cerebral infarction without residual deficits; Z99.2 Dependence on renal dialysis; I65.23 Occlusion and stenosis of bilateral carotid arteries; L89.626 Pressure-induced deep tissue damage of left heel; L89.616 Pressure-induced deep tissue damage of right heel; D50.0 Iron deficiency anemia secondary to blood loss (chronic); I50.9 Heart failure, unspecified; I25.10 Atherosclerotic heart disease of native coronary artery without angina pectoris; B96.81 Helicobacter pylori [H. pylori] as the cause of diseases classified elsewhere; Y83.2 Surgical operation with anastomosis, bypass or graft as the cause of abnormal reaction of the patient, or of later complication, without mention of misadventure at the time of the procedure
CPT/HCPCS: 31720; 36410; 36415; 36569; 36600; 70450-TC; 70496-TC; 70498-TC; 71045-TC; 80048-TC; 80053-TC; 80061-TC; 80076-TC; 80202-TC; 82010-TC; 82550-TC; 82607-TC; 82728-TC; 82803-TC; 82962-TC; 83540-TC; 83605-TC; 83735-TC; 83970; 84100-TC; 84155; 84165; 84443-TC; 84484-TC; 85025-TC; 85730-TC; 86706; 86850-TC; 87040-TC; 87340; 88305-TC; 88313-TC; 88342; 90935-TC; 92950-TC; 93307-TC; 93930-TC; 93971-TC; 94002-TC; 94003-TC; 94762-TC; 94799-TC; A4216; A4223; A6403; C9113; G0378; J0171; J0692; J1815; J1953; J2185; J2248; J2250; J2274; J3370; J3475; J3480; J3490; J7030; J7050; J7060; J7070; J7507; J7512; P9016; P9017; P9047; Q9967